=== PATIENT | female | born 1985 | race Caucasian/White ===

== ENCOUNTER 2023-12-10 17:58 | Emergency (ER) | payer OTHER, SELFPAY ==
[2023-12-10 18:10] VITALS: BP 115/82
--- NOTE | 2023-12-10 18:53 | ED.GENMED ---
History of Present Illness
General
Chief Complaint: Abdominal Pain
Source: patient
Exam Limitations: none
Time Seen by Provider: 12/10/23 18:23
History of Present Illness
History of Present Illness:
This is a 38 year old female that comes in with c/o upper abd pain and pain of her incision from her . States that she started 2 days ago with upper epigastric pain and then today her incision started to hurt. States that she had
chills last night but no fever. States that she also had diarrhea yesterday. Denies any fever, chest pain, SOB, nausea, vomiting, headache, dizziness, urinary burning.
Past History
Past History
ED Past Medical History: Asthma, GERD, Psychiatric (History of anxiety) and Other (anemia, Ulcers, Dizziness, Iron Def anemia, Lyme)
ED Past Surgical History: (X 2), Gynecological (D&E) and Other ( 10/24/2021)
Social History
Tobacco: Non-smoker
Alcohol: None
Drug: None
Personal:
Living: with family
Employment: Employed
Family History
Family History: Other (Noncontributory)
Review of Systems
Review of Systems
All Other Systems: ROS reviewed and negative except as documented in HPI and ROS
Constitutional: Reports chills; Denies fever
EENT: Reports no symptoms
Respiratory: Reports no symptoms; Denies cough or trouble breathing
Cardiac: Reports no symptoms; Denies chest pain
ABD/GI: Reports abdominal pain (Upper and lower abd) and diarrhea (Yesterday); Denies nausea or vomiting
: Reports no symptoms; Denies dysuria, frequency or urgency
Musculoskeletal: Reports no symptoms
Skin: Reports no symptoms
Neurological: Reports no symptoms; Denies dizzy or headache
Psychiatric: Reports no symptoms
Phy Exam
General Physical Exam
General Presentation: well appearing and no apparent distress
General age: appears stated age
General Skin: warm and dry
General Habitus: normal
General Mental: alert
General Hydration: appears well hydrated
ENT Exam
ENT Exam: TM's normal, pharynx normal and neck supple
Eye Exam
Eye Exam: EOMI
Cardiovascular Exam
Cardiovascular Exam: regular rate/rhythm, no edema, no murmur and normal peripheral pulses
Pulmonary Exam
Pulmonary Exam: lungs clear, no respiratory distress, no rales, chest non tender, no crackles, no rhonchi, no wheezing and no cough
Gastrointestinal Exam
Gastrointestinal Exam: normal bowel sounds, soft, no organomegaly, no pulsatile mass, non distended and tender (Slight epigastric tenderness with palpation. Right lower abd tenderness )
Musculoskeletal Exam
Musculoskeletal Exam: full ROM and no edema
Skin Exam
Skin Exam: normal color, warm/dry, no rash, no petechia and other (Incision line from negative for any redness. )
Psychiatric Exam
Psychiatric Exam: normal mood/affect
Course
Orders/Labs/Results
Orders:
Orders
12/10/23 18:41
0.9% Sodium Chloride 1000 ml [Nss] 1,000 ml IV BOLUS
Iohexol [Omnipaque] See Protocol PO NOW STA
Pantoprazole [Protonix IV] 40 mg IV NOW STA
12/10/23 18:42
Test Result ONCE
12/10/23 18:54
Complete Blood Count/With Diff Urgent
Comprehensive Metabolic Panel Urgent
HCG, Serum Qualitative Screen Urgent
Lipase Urgent
12/10/23 19:02
Sucralfate Suspension [Carafate Suspension] 1 gm PO NOW STA
12/10/23 19:40
Urinalysis Reflex To Culture Urgent
Date Specimen was Collected: 12/10/23
Time Specimen was Collected: 18:59
Urine Microscopic Reflex Cult Urgent
Abnormal Lab Results
12/10/23 12/10/23
18:54 19:40
RBC 4.05 L 10^6/uL
(4.20-5.40)
Hgb 11.9 L g/dL
(12.0-16.0)
Hct 34.6 L %
(37.0-47.0)
Absolute Monos (auto) 0.8 H 10^3/uL
(0.1-0.6)
Leukocyte Esterase Rfl Trace A
(Negative)
Urine Bacteria (Reflex) Few A
(Negative)
12/10/23 18:54
12/10/23 18:54
H/H slightly low. HCG negative. Urine negative for infection.
Vital Signs
Initial and Last Documented VS:
Initial Vital Signs
Temp Pulse Resp BP Pulse Ox
99.6 F 90 16 115/82 100
12/10/23 18:10 12/10/23 18:10 12/10/23 18:10 12/10/23 18:10 12/10/23 18:10
Last Documented Vital Signs
Temp Pulse Resp BP Pulse Ox
99.6 F 80 18 101/67 97
12/10/23 18:10 12/10/23 18:59 12/10/23 18:59 12/10/23 18:59 12/10/23 18:59
MDM/Problems Addressed
Differential Diagnosis Includes:
Gastritis, Appendicitis
MDM/Problems Addressed:
This is a 38 year old female that comes in with c/o epigastric pain and lower abd incision pain. States that the upper abd pain started 2 days ago and then today the incision pain started.
Will get labs. CT scan, IV fluids.
back into see patient. States that she is feeling some better. Explained that this could be a Gastritis. Encouraged patient to use Tylenol only for pain as the NSAIDS are irritating to the stomach lining. Will place patient on Protonis and Carafate.
Patient to follow up with the PROTOCOL OFFICER and use Tylenol for pain. Patient to return with any concerns.
Chronic conditions affecting care: Previous abdomnial surgery
Acute Exacerbation and/or Progression of Chronic Illness: Previous abdomnial surgery
*Pulse Oximetry
Patient hypoxic: no
*EKG
Interpreted by ED Provider?: NA
Rate: EKG- N/A
*Top Coater Interpretation
Rate: Top Coater- N/A
*Critical Care Note
Total Time (30-74mins, 75-104mins- exclusive of procedures): Not Applicable
ED Attending Note
-
Portions of this chart may have been created with voice recognition software.� Occasional wrong word or��sound alike� substitutions may have occurred due to the inherent limitations of voice recognition software.
Discharge Plan
Departure
Patient Disposition: Home (Routine Discharge)
Date of Disposition: 12/10/23
Time of Disposition: 20:26
Patient with high blood pressure during this ER visit?: No
Condition: Good
Covid-19: Not Applicable
Discharge Problem:
Gastritis, Pain at surgical incision
Instructions: Gastritis (DC)
Prescriptions:
New
pantoprazole [Protonix] 40 mg tablet,delayed release (DR/EC)
40 mg PO DAILY Qty: 10 0RF
sucralfate [Carafate] 1 gram tablet
1 g PO ACHS Qty: 40 0RF
Rx Instructions:
Dissolve in 2tsp water and drink. 30min-1hour before meals and Bedtime
No Action
Complete
1 cap PO DAILY
sucralfate [Carafate] 1 gram tablet
1 g PO AC Qty: 30 0RF
pantoprazole [Protonix] 40 mg tablet,delayed release (DR/EC)
40 mg PO DAILY Qty: 10 0RF
ondansetron 4 mg tablet,disintegrating
4 mg PO TIDPRN PRN (Reason: nausea/vomiting) Qty: 20 0RF
Activity Restrictions/Additional Instructions:
As discussed, your blood work shows your Hgb is slightly low. Otherwise your labs are normal. Your urine is negative for infection. The upper abd discomfort is most likely Gastritis. You have had 2 prescriptions sent to your Pharmacy. The first is
Protonix which you take once daily. The second is Carafate which you will take 30min to 1 hour before each meal and at bedtime. Please dissolve the tablet in 2 tsp of water and drink. Follow up with the family doctor and your PROTOCOL OFFICER for further
evaluation. IF YOU HAVE ANY OTHER CONCERNS PLEASE RETURN TO THE EMERGENCY ROOM.
Interventions
Interventions:
*Risk Screen - Suicide Last Done: 12/10/23 20:10
*General Assessment Last Done: 12/10/23 20:10
*Neglect/Abuse Screening Last Done: 12/10/23 20:10
ED- Fall Risk Assessment Last Done: 12/10/23 20:10
YU-Gryjmz-Jcftuaupgj Assessment Last Done: 12/10/23 19:55
ED-Skin Assessment Last Done: 12/10/23 19:56
Discharge Date and Time
Print Language: [place]IZ[place]
[2023-12-10] MEDS: NSS 1000 IV (18:54)
[2023-12-10] MEDS: PROTONIX IV 40 MG IV (18:56)
[2023-12-10 18:59] VITALS: BP 101/67
[2023-12-10 18:59] LABS: % Basophils 0.4 % (0-2); % Immature Granulocytes 0.3 % (0-0.5); % Lymphocytes 27.6 % (20.5-51.1); % Neutrophils 62.7 % (42.2-75.2); Absolute Eosinophils 0.1 10^3/uL (0-0.7); Absolute Lymphocytes 2.7 10^3/uL (1.2-3.4); Absolute Monocytes 0.8 10^3/uL (0.1-0.6); Absolute Neutrophils 6.2 10^3/uL (1.4-6.5); Hematocrit 34.6 % (37.0-47.0); Hemoglobin 11.9 g/dL (12.0-16.0); Mean Corp Hgb Conc. 34.4 g/dL (33.0-37.0); Mean Corpuscular Hgb 29.4 pg (27.0-31.0); Mean Corpuscular Volume 85.4 fL (81.0-99.0); Mean Platelet Volume 9.7 fL (7.4-10.4); Nucleated Red Blood Cells % 0 %; Platelet Count 274 10^3/uL (130-400); Red Blood Cell Count 4.05 10^6/uL (4.20-5.40); Red Cell Dist. Width 14.2 % (11.5-14.5); White Blood Cell Count 9.9 10^3/uL (4.8-10.8)
[2023-12-10 19:12] LABS: HCG, Serum Qualitative Screen Negative
[2023-12-10 19:22] LABS: ALT (SGPT) 20 U/L (0-35); AST (SGOT) 21 U/L (14-36); Albumin 4.2 g/dl (3.5-5.0); Alkaline Phosphatase 84 U/L (38-126); Blood Urea Nitrogen 13 mg/dl (7-17); Calcium 9.6 mg/dl (8.4-10.2); Carbon Dioxide 25 mmol/L (22-30); Chloride 106 mmol/L (98-107); Glucose 99 mg/dl (70-99); Lipase 153 U/L (23-300); Sodium 136 mmol/L (135-145); Total Bilirubin 0.6 mg/dl (0.2-1.3); Total Protein 6.4 g/dl (6.3-8.2); eGFR > 60.00
[2023-12-10] MEDS: CARAFATE SUSPENSION 1 GM PO (19:39)
[2023-12-10 19:47] LABS: Urine Albumin Negative (Neg - Trace); Urine Bilirubin Negative (Negative); Urine Character Clear (Clear); Urine Color Yellow; Urine Glucose Negative (Negative); Urine Ketone Negative (Negative); Urine Leukocyte Trace (Negative); Urine Nitrite Negative (Negative); Urine Occult Blood Negative (Negative); Urine Urobilinogen Negative (Neg - 1+); Urine pH 6.5 (5.0-9.0)
[2023-12-10 20:01] LABS: Urine Bacteria Few (Negative); Urine Red Blood Cell 0-2 /HPF (0-2); Urine Squamous Cell 16-20 /LPF (Few); Urine White Cell 0-2 /HPF (0-5)
[2023-12-10 20:30] VITALS: BP 111/78
== END 2023-12-10 20:38 | disposition home or self-care (01) ==
LOC: EMR 17:58
PROVIDERS: Clinical Nurse Specialist Family Health; EMERGENCY PHYSICIAN Emergency Medicine; FAMILY PHYSICIAN Family Medicine
DX: O90.89 Other complications of the puerperium, not elsewhere classified (principal); K29.00 Acute gastritis without bleeding; G89.18 Other acute postprocedural pain; R68.83 Chills (without fever); R10.13 Epigastric pain; R10.30 Lower abdominal pain, unspecified; R19.7 Diarrhea, unspecified; J45.909 Unspecified asthma, uncomplicated; K21.9 Gastro-esophageal reflux disease without esophagitis; F41.9 Anxiety disorder, unspecified; D50.9 Iron deficiency anemia, unspecified; Z91.041 Radiographic dye allergy status
CPT/HCPCS: 99284; 96374; 96361 ×2; 80053; 81003; 81015; 83690; 84703; 85025

== ENCOUNTER → 2024-01-08 18:48 | Outpatient (REF) | payer OTHER, SELFPAY | LOC: WDC 18:48 | PROVIDERS: ATTENDING PHYSICIAN Physician Assistant | DX: Z12.31 Encounter for screening mammogram for malignant neoplasm of breast (principal); Z12.39 Encounter for other screening for malignant neoplasm of breast | CPT/HCPCS: 77063; 77067 ==

== ENCOUNTER → 2024-02-25 14:03 | Outpatient (REF) | payer OTHER, SELFPAY | LOC: HWRCS 14:03 | PROVIDERS: ATTENDING PHYSICIAN Internal Medicine Cardiovascular Disease; FAMILY PHYSICIAN Physician Assistant | DX: R00.2 Palpitations (principal) | CPT/HCPCS: 93306 ==

== ENCOUNTER → 2024-04-22 07:10 | Outpatient (REF) | payer OTHER, SELFPAY | LOC: HWRAD 07:10 | PROVIDERS: ATTENDING PHYSICIAN Internal Medicine; FAMILY PHYSICIAN Physician Assistant | DX: R10.13 Epigastric pain (principal) | CPT/HCPCS: 76700 ==

== ENCOUNTER → 2024-11-02 08:05 | Outpatient (REF) | payer OTHER, SELFPAY | LOC: HWRAD 08:05 | PROVIDERS: ATTENDING PHYSICIAN Family Medicine | DX: N94.0 Mittelschmerz (principal); Z87.42 Personal history of other diseases of the female genital tract | CPT/HCPCS: 76830; 76856 ==

== ENCOUNTER 2024-12-05 22:26 | Emergency (ER) | payer OTHER, SELFPAY ==
[2024-12-05 22:27] VITALS: BP 139/94
--- NOTE | 2024-12-05 23:35 | ED.GENMED ---
History of Present Illness
General
Chief Complaint: Skin Surface Trauma
Source: patient
Time Seen by Provider: 12/05/24 23:27
History of Present Illness
History of Present Illness:
Note:
CHIEF COMPLAINT(S)
Profuse bleeding from a wrist cyst due to a puncture.
HISTORY OF PRESENT ILLNESS
The patient is a 39-year-old female who presented with profuse bleeding from a cyst on her right wrist. She reports that she was cleaning in the sink when a meat thermometer pricked the site of a pre-existing lump on her wrist, which she believes to
be a ganglion cyst. The injury resulted in clear fluid initially followed by a significant amount of blood, described by the patient as 'shooting out' of the cyst and lasting for approximately 45 minutes despite applying pressure. She expressed
concern due to the severity of the bleeding, stating it was 'like a pulsating artery bleed.' The patient noted that this lump has been present for some time but has not changed in size or caused similar bleeding prior to this incident. No
pre-hospital interventions were required as the bleeding eventually stopped on its own.
PAST MEDICAL AND SURGICAL HISTORY
The patient mentioned having a similar lump in the past that resolved on its own without surgical intervention.
PHYSICAL EXAM
General: Alert, no acute distress.
Skin: Warm, dry.
Head: Normocephalic, atraumatic.
Neck: Supple, trachea midline.
Eye, Ears, Nose, Mouth and Throat: Oral mucosa moist.
Cardiovascular: Normal peripheral perfusion, no edema. Radial artery palpable and normal, non-pulsatile mass noted at R wrist (cystic structure) just proximal to hand overlying region near radial artery, normal distal capillary refill. mass is
fluctuant with mild changes suggestive of bleeding into cyst.
Respiratory: Respirations are non-labored.
Gastrointestinal: Abdomen nondistended.
Back: Normal range of motion, normal alignment.
Musculoskeletal: Normal range of motion, normal strength.
Neurological: Alert and oriented to person, place, time, and situation, no focal neurological deficit observed.
Psychiatric: Cooperative, appropriate mood & affect.
PROBLEM LIST
- Acute problem: Bleeding from a wrist cyst.
- Suspected ganglion cyst of the right wrist.
PLAN
- Apply light compression dressing to the affected wrist using a four by four gauze and an elastic bandage.
- Advise the patient to keep the dressing on for at least 24 hours to prevent re-bleeding.
- Discussed potential bruising of the area and advised the patient not to be alarmed if discoloration occurs.
- Recommended follow-up with a hand specialist for assessment and possible permanent treatment of the ganglion cyst. Provided contact for a specialist, Dr. Christiano Kowalski.
- Advised to return to the emergency department if bleeding recurs or if she has any concerns.
DIFFERENTIAL DIAGNOSIS
The Differential Diagnosis includes, in no particular order and is not limited to:
- Ganglion cyst
- Arterial injury
- Hemangioma
- Lipoma
- Abscess
- Aneurysm of the radial artery
- Vascular malformation
- Soft tissue sarcoma
- Synovial cyst
- Tenosynovitis
Disposition:
SUMMARY OF ENCOUNTER
The patient, a 39-year-old female, was seen in the emergency department for profuse bleeding from a punctured cyst on her right wrist. After cleaning in the sink, she was pricked by a mosquito monitor at the site of a pre-existing lump, suspected to
be a ganglion cyst. The injury caused a significant amount of blood to flow, described as 'shooting out,' lasting approximately 45 minutes despite applied pressure. Upon examination, the bleeding had ceased, with the hand well profused. Given the
patients stability and independent cessation of bleeding, a superficial injury was suspected. A compressive dressing was applied to the affected area to prevent re-bleeding.
PLAN
Apply a compressive dressing using a four by four gauze and an elastic bandage to the right wrist. Instruct the patient to keep the dressing on for at least 24 hours and advise that discoloration may occur without alarm. Recommend follow-up with a
hand specialist to assess and possibly treat the ganglion cyst permanently. Advise the patient to return to the emergency department if bleeding recurs or concerning symptoms develop.
PATIENT EDUCATION AND COUNSELING
The patient was informed about the nature of her wrist condition, the potential for re-bleeding, and signs to watch for that may necessitate a return to the emergency department. She was also advised that bruising might occur and provided contact
information for a hand specialist for further evaluation and management of the ganglion cyst.
FOLLOW-UP INSTRUCTIONS
The patient was advised to schedule a follow-up appointment with a hand specialist, Dr. Christiano Kowalski, for evaluation of the ganglion cyst. The patient was instructed to return to the emergency department for any recurrent bleeding or concerns.
MEDICAL DECISION MAKING
-Number and Complexity of Problems Addressed: Acute problem of bleeding from a wrist cyst with a suspected ganglion cyst. Differential diagnosis considered includes ganglion cyst, arterial injury, hemangioma, lipoma, abscess, aneurysm of the radial
artery, vascular malformation, soft tissue sarcoma, synovial cyst, and tenosynovitis.
-Data:
Category 1: The decision was based primarily on the patient�s presentation and history, as no labs or imaging were performed during this visit.
-Risk: Consideration of Admission/Observation: Escalation of care including admission/observation was considered given the complexity and risk of the patients presenting complaint. However, ultimately the patient was deemed safe for outpatient
management with close follow-up. Reasoning: The work-up was reassuring, revealing no acute life-threatening processes. The patients symptoms were well-controlled upon reevaluation, the examination was reassuring, vitals were stable, and the patient
agreed with outpatient management and was reliable for follow-up.
DIAGNOSIS
- Ganglion cyst of the right wrist, suspected (ICD-10: M67.41)
Past History
Past History
ED Past Medical History: Asthma, GERD, Psychiatric (History of anxiety) and Other (anemia, Ulcers, Dizziness, Iron Def anemia, Lyme)
ED Past Surgical History: (X 2), Gynecological (D&E) and Other ( 10/24/2021)
Social History
Tobacco: Non-smoker
Alcohol: None
Drug: None
Personal:
Living: with family
Employment: Employed
Family History
Family History: Other (Noncontributory)
Phy Exam
Physical Exam
Physical Exam:
.
Course
Vital Signs
Initial and Last Documented VS:
Initial Vital Signs
Temp Pulse Resp BP Pulse Ox
97.7 F 79 18 139/94 99
12/05/24 22:27 12/05/24 22:27 12/05/24 22:27 12/05/24 22:27 12/05/24 22:27
Last Documented Vital Signs
Temp Pulse Resp BP Pulse Ox
97.7 F 79 18 139/94 99
12/05/24 22:27 12/05/24 22:27 12/05/24 22:27 12/05/24 22:27 12/05/24 22:27
*Pulse Oximetry
SaO2: 99
Oxygen Mode of Delivery: Room air
Patient hypoxic: no
*Critical Care Note
Total Time (30-74mins, 75-104mins- exclusive of procedures): Not Applicable
ED Attending Note
-
Portions of this chart may have been created with voice recognition software.� Occasional wrong word or��sound alike� substitutions may have occurred due to the inherent limitations of voice recognition software.
Discharge Plan
Departure
Patient Disposition: Home (Routine Discharge)
Date of Disposition: 12/05/24
Time of Disposition: 23:40
Patient with high blood pressure during this ER visit?: Yes
Discharge Problem:
Puncture wound, Ganglion cyst
Instructions: Ganglion cyst, Wound Care (DC), BLOOD PRESSURE
Prescriptions:
No Action
Complete
1 cap PO DAILY
sucralfate [Carafate] 1 gram tablet
1 g PO AC Qty: 30 0RF
pantoprazole [Protonix] 40 mg tablet,delayed release (DR/EC)
40 mg PO DAILY Qty: 10 0RF
ondansetron 4 mg tablet,disintegrating
4 mg PO TIDPRN PRN (Reason: nausea/vomiting) Qty: 20 0RF
pantoprazole [Protonix] 40 mg tablet,delayed release (DR/EC)
40 mg PO DAILY Qty: 10 0RF
sucralfate [Carafate] 1 gram tablet
1 g PO ACHS Qty: 40 0RF
Rx Instructions:
Dissolve in 2tsp water and drink. 30min-1hour before meals and Bedtime
Referrals:
Lala Vines MD [Family Provider, Family Practice]
Activity Restrictions/Additional Instructions:
Keep compressive dressing intact for the next 24 hours. Return immediately for bleeding, redness, drainage from the wound or any other concerns. Please follow-up with hand surgery in the next 2 weeks.
Interventions
Interventions:
*Risk Screen - Suicide Last Done: 12/05/24 22:27
*General Assessment Last Done: 12/05/24 22:27
*Neglect/Abuse Screening Last Done: 12/05/24 22:27
*ED- Fall Risk Assessment Last Done: 12/05/24 22:27
*ED COVID-19 Vaccine History Last Done: 12/05/24 22:27
ED-Skin Assessment Last Done: 12/05/24 23:25
Discharge Date and Time
Print Language: ESTONIAN
== END 2024-12-05 23:45 | disposition home or self-care (01) ==
LOC: EMR 22:26
PROVIDERS: EMERGENCY PHYSICIAN Emergency Medicine; FAMILY PHYSICIAN Family Medicine
DX: S61.531A Puncture wound without foreign body of right wrist, initial encounter (principal); M67.431 Ganglion, right wrist; W26.9XXA Contact with unspecified sharp object(s), initial encounter; J45.909 Unspecified asthma, uncomplicated; K21.9 Gastro-esophageal reflux disease without esophagitis; F41.9 Anxiety disorder, unspecified; D64.9 Anemia, unspecified; D50.9 Iron deficiency anemia, unspecified
CPT/HCPCS: 99282

== ENCOUNTER → 2025-01-11 18:58 | Outpatient (REF) | payer OTHER, SELFPAY | LOC: WDC 18:58 | PROVIDERS: ATTENDING PHYSICIAN Physician Assistant | DX: Z12.31 Encounter for screening mammogram for malignant neoplasm of breast (principal) | CPT/HCPCS: 77063; 77067 ==